=== PATIENT | male | born 1950 | race Caucasian/White ===

== ENCOUNTER 2017-04-30 07:36 | Emergency (ER) | payer MEDICARE, OTHER ==
[~2017-04-30] VITALS: Ht 177.8 cm; Wt 86.0 kg
[~2017-04-30 07:36] MED LIST: ASPI81 PO; LORTA5 PO; ORPH100T PO; PRAV10 PO; PRIL10CA; TEMA7.5C9 PO; ZOLO50TA PO
[2017-04-30 07:39] VITALS: BP 136/66; PULSE 80; RESP 18; TEMP 98.2; O2SAT 98
[2017-04-30] MEDS ORDERED: VENTAER INH (07:54)
[2017-04-30] MEDS ORDERED: ZITHTAB PO (07:54)
[2017-04-30] MEDS ORDERED: PRED-503 PO (07:54)
--- NOTE | 2017-04-30 07:54 | PD ---
HPI Chief Complaint: Cold / Flu Symptoms Time Seen by Provider: 07:43 Travel History International Travel<30 days: No Contact w/Intl Traveler<30days: No Traveled to known affect area: No History of Present Illness HPI The patient is a 67-year-old male who presents to the emergency department for cough and cold symptoms. The patient states she developed flulike symptoms on Wednesday with sore throat, nasal congestion, and body aches. The patient states he then developed a productive cough producing yellow to green sputum. The patient denies any history of tobacco use. He denies any fever, chills, or sweats. He denies any anterior facial pain, but does complain of congestion with postnasal drip. He now complains of productive cough without any chest pain or shortness of breath. He denies any associated nausea, vomiting, diarrhea, or abdominal pain. The patient is followed at the [facility]. Symptoms are moderate without any alleviating or exacerbating factors. PFSH Past Medical History Hx Anticoagulant Therapy: Yes (ASA 81MG DAILY) Depression: Yes Heart Rhythm Problems: No Cardiac Catheterization: No Cardiovascular Problems: No High Cholesterol: Yes Congestive Heart Failure: No Diabetes: No Diminished Hearing: No GERD: Yes Genitourinary: Yes (POLYURIA) Hypertension: No Immunizations Current: Yes Myocardial Infarction: No PNEUMOCCOCAL Vaccine (Year): 2 Past Surgical History Appendectomy: Yes Body Medical Devices: IMPLANT IN BACK- TO CONTROL BLADDER FREQUENCY Coronary Artery Bypass Graft: No Tonsillectomy: Yes Other Surgery: Yes (ANAL FISTULA) Social History Alcohol Use: Yes (OCC.) Tobacco Use: No Substance Use: No Allergies-Medications (Allergen,Severity, Reaction): Coded Allergies: No Known Allergies (Unverified , 04/30/17) Reported Meds & Prescriptions Reported Meds & Active Scripts Active Norflex (Orphenadrine Citrate) 100 Mg Mabel 100 Mg PO Q12 PRN Lortab 5/325 Tab (Hydrocodone-Acetaminophen) Acetaminophen 325/5 Hydrocodone Tab 1 Tab PO Q6H PRN Reported Zoloft (Sertraline HCl) Unknown Strength Tab Unknown Dose PO DAILY Restoril (Temazepam) Unknown Strength Cap Unknown Dose PO UNKNOWN DOSE Aspirin 81 Mg Tab 81 Mg PO DAILY Pravachol (Pravastatin Sodium) Unknown Strength Tab Unknown Dose PO UNKNOWN DOSE Prilosec (Omeprazole) Unknown Strength Cap Unknown Dose Review of Systems Except as stated in HPI: all other systems reviewed are Neg General / Constitutional: No: Fever, Chills HENT: Positive: Sore Throat, Congestion Cardiovascular: No: Chest Pain or Discomfort Respiratory: Positive: Cough, No: Shortness of Breath Gastrointestinal: No: Nausea, Vomiting, Diarrhea Musculoskeletal: No: Myalgias, Arthralgias Physical Exam Narrative GENERAL: Awake, alert, pleasant 67-year-old male who appears his stated age and is in no acute respiratory distress. SKIN: Focused skin assessment warm/dry. HEAD: Atraumatic. Normocephalic. EYES: Pupils equal and round. No scleral icterus. No injection or drainage. ENT: No nasal bleeding or discharge. Cobblestoning noted without exudate. No tenderness of the maxillary or frontal sinuses. NECK: Trachea midline. No JVD. No significant anterior cervical lymphadenopathy noted. CARDIOVASCULAR: Regular rate and rhythm. No murmur appreciated. RESPIRATORY: No accessory muscle use. Few scattered wheezes. GASTROINTESTINAL: Abdomen soft, non-tender, nondistended. MUSCULOSKELETAL: No obvious deformities. No clubbing. No cyanosis. No edema. NEUROLOGICAL: Awake and alert. No obvious cranial nerve deficits. Motor grossly within normal limits. Normal speech. PSYCHIATRIC: Appropriate mood and affect; insight and judgment normal. Data Data Last Documented VS Vital Signs Date Time Temp Pulse Resp B/P (MAP) Pulse Ox O2 Delivery O2 Flow Rate FiO2 04/30/17 07:39 98.2 80 18 136/66 (89) 98 MDM Medical Decision Making Medical Screen Exam Complete: Yes Emergency Medical Condition: Yes Medical Record Reviewed: Yes Differential Diagnosis Differential diagnosis includes bronchitis, pneumonia, URI, viral syndrome, sinusitis, pharyngitis, influenza. Narrative Course The patient's history and physical are consistent with probable previous URI with secondary bronchitis. The patient is currently afebrile there is no hypoxia, therefore, chest x-ray was not performed. The patient's symptoms started on Wednesday, is now Wednesday, therefore, no influenza screen was performed. The patient is currently afebrile with normal vital signs. Patient will be treated for bronchitis with prednisone, albuterol inhaler, and Zithromax. The patient had a listed allergy for Cipro, he states he is not allergic to any antibiotics. Therefore, that allergy was removed. He also had allergies listed as warfarin and aspirin, however, he states he is not allergic to any medications, he had a GI bleed and a thinks his medications possibly related. However, he adamantly states he has no allergies, therefore, his allergies were deleted. The patient is advised to follow-up at the [facility] and return if symptoms worsen or progress. Diagnosis Primary Impression: Bronchitis Patient Instructions: General Instructions Additional Instructions: Medications as directed. Follow-up with your primary physician at the [facility]. Return if symptoms worsen or progress. Med/Other Pt SpecificInfo: Prescription(s) given Scripts Albuterol 18 GM Inh (Ventolin Hfa 18 GM Inh) 90 Mcg/Act Aer 2 PUFF INH Q6H Y for SHORTNESS OF BREATH, #1 INHALER 0 Refills Prov: Jonnie Fierro MD 04/30/17 Prednisone (Deltasone) 20 Mg Tab 40 MG PO DAILY for 5 Days, #10 TAB 0 Refills Prov: Jonnie Fierro MD 04/30/17 Azithromycin (Zithromax Z-Preston) 250 Mg Dspk 250 MG PO DIRECTED for Infection, #1 DSPK 0 Refills 500 MG (2 tabs) day 1, then 1 tab days 2-5. Prov: Jonnie Fierro MD 04/30/17 Disposition: 01 DISCHARGE HOME Condition: Stable Jonnie Fierro MD Apr 30, 2017 07:54
[2017-04-30] MEDS ORDERED: VITA1000 PO (08:02)
[2017-04-30] MEDS ORDERED: MAGN200T9 PO (08:02)
[2017-04-30] MEDS ORDERED: SERT-132 PO (08:02)
[2017-04-30] MEDS ORDERED: PRAV20TA2 PO (08:02)
[2017-04-30] MEDS ORDERED: ASPI81TA23 PO (08:03)
== END 2017-04-30 08:10 | disposition home or self-care (01) ==
LOC: PHED 07:36
DX: J40 Bronchitis, not specified as acute or chronic (principal); J02.9 Acute pharyngitis, unspecified; F32.9 Major depressive disorder, single episode, unspecified; K21.9 Gastro-esophageal reflux disease without esophagitis; E78.00 Pure hypercholesterolemia, unspecified
CPT/HCPCS: 99284

== ENCOUNTER 2017-06-10 17:31 | Emergency (ER) | payer MEDICARE, OTHER ==
[~2017-06-10] VITALS: Ht 177.8 cm; Wt 87.8 kg
[~2017-06-10 17:31] MED LIST changes: -ASPI81 PO; +ASPI81TA23 PO; -LORTA5 PO; +MAGN200T9 PO; -ORPH100T PO; -PRAV10 PO; +PRAV20TA2 PO; +PRED-503 PO; -PRIL10CA; +SERT-132 PO; -TEMA7.5C9 PO; +VENTAER INH; +VITA1000 PO; +ZITHTAB PO; -ZOLO50TA PO
[2017-06-10 17:35] VITALS: BP 122/75; PULSE 81; RESP 20; TEMP 97.7; O2SAT 96
[2017-06-10] MEDS ORDERED: BUPR100T4 PO (17:53)
[2017-06-10] MEDS ORDERED: OMEP20TA93 PO (17:53)
--- NOTE | 2017-06-10 18:40 | PD ---
HPI Chief Complaint: Fall Time Seen by Provider: 18:19 Travel History International Travel<30 days: No Contact w/Intl Traveler<30days: No Traveled to known affect area: No History of Present Illness HPI 67-year-old male here with right anterior rib & toe pain after he tripped and fell onto the corner of a wood table injuring his ribs. Injury occurred at 3 PM today. He denies head injury or loss of consciousness. He is not anticoagulated. He has pain with palpation of the ribs and deep inspiration. He denies headache, neck pain, chest pain, shortness of breath, abdominal pain, nausea or vomiting. He also has pain in the right great toe. Symptom severity is moderate. Aggravated by movement and palpation of the areas and relieved with rest. PFSH Past Medical History Arthritis: Yes Anxiety: Yes Depression: Yes Heart Rhythm Problems: No Cardiac Catheterization: No Cardiovascular Problems: No High Cholesterol: Yes Congestive Heart Failure: No Cerebrovascular Accident: Yes (tia?) Diabetes: No Diminished Hearing: No GERD: Yes Genitourinary: Yes (POLYURIA) Hypertension: No Respiratory: Yes (bronchitis, TOMÁS) Immunizations Current: Yes Myocardial Infarction: No Tetanus Vaccination: < 5 Years Influenza Vaccination: Yes PNEUMOCCOCAL Vaccine (Year): 2 Past Surgical History Appendectomy: Yes Body Medical Devices: IMPLANT IN BACK- TO CONTROL BLADDER FREQUENCY Coronary Artery Bypass Graft: No Genitourinary Surgery: Yes (genital reconstruction as a baby) Tonsillectomy: Yes Other Surgery: Yes (ANAL FISTULA) Family History Family Myocardial Infarction: Yes Social History Alcohol Use: Yes (socially) Tobacco Use: No (quit in 1976 ) Substance Use: No Allergies-Medications (Allergen,Severity, Reaction): Coded Allergies: No Known Allergies (Unverified , 06/10/17) Reported Meds & Prescriptions Reported Meds & Active Scripts Active Ultram (Tramadol HCl) 50 Mg Tab 50 Mg PO Q6H PRN Reported Omeprazole 20 Mg Tab 20 Mg PO DAILY Bupropion HCl 100 Mg Tab 100 Mg PO HS Aspirin EC (Aspirin) 81 Mg Tabdr 81 Mg PO DAILY Mag-Oxide (Magnesium Oxide) Unknown Strength Tablet Unknown Dose PO DAILY Vitamin D-1000 (Cholecalciferol) Unknown Strength Tab Unknown Dose PO DAILY Pravastatin 20 Mg Tab 20 Mg PO HS Sertraline (Sertraline HCl) 50 Mg Tab 50 Mg PO DAILY Review of Systems Except as stated in HPI: all other systems reviewed are Neg General / Constitutional: No: Fever Eyes: No: Visual changes HENT: No: Headaches Cardiovascular: Positive: Other (right rib pain), No: Chest Pain or Discomfort Respiratory: No: Shortness of Breath Gastrointestinal: No: Abdominal Pain Genitourinary: No: Dysuria Musculoskeletal: No: Pain Skin: No Rash Neurologic: No: Weakness Physical Exam Narrative GENERAL: Alert, well-appearing male in no distress. Patient resting comfortably on stretcher. SKIN: Warm and dry. Abrasion noted to the right lower anterior chest wall at the border of the ribs. HEAD: Atraumatic. Normocephalic. EYES: Pupils equal and round. No scleral icterus. No injection or drainage. ENT: No nasal bleeding or discharge. Mucous membranes pink and moist. NECK: Trachea midline. No JVD. No cervical midline tenderness. CARDIOVASCULAR: Regular rate and rhythm. RESPIRATORY: No accessory muscle use. Clear to auscultation. Breath sounds equal bilaterally. Tenderness to the right anterior ribs. No rib crepitus. GASTROINTESTINAL: Abdomen soft, non-tender, nondistended no rebound. Hepatic and splenic margins not palpable. MUSCULOSKELETAL: Extremities without clubbing, cyanosis, or edema. No obvious deformities. Right great toe: ecchymotic and mild swelling. No deformity. Refill. NEUROLOGICAL: Awake and alert. No obvious cranial nerve deficits. Motor grossly within normal limits. Five out of 5 muscle strength in the arms and legs. Normal speech. PSYCHIATRIC: Appropriate mood and affect; insight and judgment normal. Data Data Last Documented VS Vital Signs Date Time Temp Pulse Resp B/P (MAP) Pulse Ox O2 Delivery O2 Flow Rate FiO2 06/10/17 17:35 97.7 81 20 122/75 (91) 96 Orders Orders Ribs, Uni (W/Exp Cxr-Min 3vw) (06/10/17 ) Toe (Min 2vws) (06/10/17 ) Ketorolac Inj (Toradol Inj) (06/10/17 19:15) Ed Discharge Order (06/10/17 19:37) [facility] Medical Decision Making Medical Screen Exam Complete: Yes Emergency Medical Condition: Yes Differential Diagnosis Rib fracture, intra-abdominal injury, toe injury, contusion, sprain Narrative Course 67-year-old male here for evaluation of right rib and right great toe pain after a mechanical trip and fall. Patient stubbed the toe falling forward landing on the edge of a wood table injuring his ribs. He has an abrasion to the right lower anterior chest wall extending to the rib border/RUQ. The patient's abdomen is soft, nontender, nondistended. He is adamant he has no abdominal pain. His pain is localized to the ribs. Given the patient's physical exam intra-abdominal injury such as a liver laceration is very unlikely. This was discussed with patient. A CT scan was offered because of the abrasion noted to the right upper quadrant but the patient declined stating he had no abdominal pain. Risk/severity of a missed intra- abdominal injury was discussed. Patient verbalizes understanding and agrees to return if he develops abdominal pain, distention, nausea or vomiting. Chest x-ray: Negative for rib fracture. No pneumothorax. Right foot: Right distal phalanx fracture. Patient was reassessed after Toradol. He reports symptom improvement. His abdomen again was reassessed it is soft and nontender. No distention. He is stable and ready for discharge Diagnosis Primary Impression: Rib contusion Qualified Codes: S20.211A - Contusion of right front wall of thorax, initial encounter Additional Impression: Toe fracture, right Qualified Codes: S92.424A - Nondisplaced fracture of distal phalanx of right great toe, initial encounter for closed fracture Referrals: Primary Care Physician Additional Instructions: Take [id number] Motrin 800 mg as needed for pain. Take Ultram as needed for severe pain Avoid heavy lifting or strenuous activity. 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 Scripts Tramadol (Ultram) 50 Mg Tab 50 MG PO Q6H Y for PAIN, #12 TAB 0 Refills Prov: Eleazar Christianson MD 06/10/17 Disposition: 01 DISCHARGE HOME Condition: Stable Kymebrly French Jun 10, 2017 18:40
--- NOTE | 2017-06-10 18:55 | RADRPT ---
EXAM DATE/TIME: 06/10/2017 18:21 [facility] COMPARISON: No previous studies available for comparison. INDICATIONS : Fall. Stubbed toe and fell and hit ribs this afternoon. MEDICAL HISTORY : None. SURGICAL HISTORY : None. ENCOUNTER: Initial ACUITY: 1 day PAIN SCORE: 4/10 LOCATION: Right Great toe FINDINGS: There is a mildly displaced chip fracture involving the dorsal corner of the great toe distal phalanx at the interphalangeal joint. There is mild degenerative arthritic change present. Mild hallux valgu s noted. CONCLUSION: Great toe distal phalangeal fracture involving the dorsal interphalangeal joint Rajeev Gonsales MD on June 10, 2017 at 18:52 Board Certified Radiologist. This report was verified electronically.
--- NOTE | 2017-06-10 19:10 | RADRPT ---
EXAM DATE/TIME: 06/10/2017 18:21 [facility] COMPARISON: No previous studies available for comparison. INDICATIONS : Fall. Stubbed toe and fell and hit ribs this afternoon. MEDICAL HISTORY : None. SURGICAL HISTORY : None. ENCOUNTER: Initial ACUITY: 1 day PAIN SCORE: 7/10 LOCATION: Right Ribs FINDINGS: Multiple views of the right ribs were performed. There is no evidence of displaced fracture. No luiz tructive lesions or areas of periosteal thickening are seen. Expiratory view of the chest is negativ e for pneumothorax. The mediastinal structures are midline. CONCLUSION: Unremarkable examination of the right ribs and chest. Rajeev Gonsales MD on June 10, 2017 at 19:07 Board Certified Radiologist. This report was verified electronically.
[2017-06-10] MEDS ORDERED: KETOROLAC TROMETHAMINE 60 MG/2 ML (IM) VIAL IM ONE (19:15)
[2017-06-10] MEDS ORDERED: IBUP1TAB7 PO (19:36)
[2017-06-10] MEDS ORDERED: TRAM50 PO (19:45)
== END 2017-06-10 19:59 | disposition home or self-care (01) ==
LOC: PHEFT 17:31
DX: S20.219A Contusion of unspecified front wall of thorax, initial encounter (principal); S92.421A Displaced fracture of distal phalanx of right great toe, initial encounter for closed fracture; W01.190A Fall on same level from slipping, tripping and stumbling with subsequent striking against furniture, initial encounter; E78.00 Pure hypercholesterolemia, unspecified; F32.9 Major depressive disorder, single episode, unspecified; F41.9 Anxiety disorder, unspecified; K21.9 Gastro-esophageal reflux disease without esophagitis; Z86.73 Personal history of transient ischemic attack (TIA), and cerebral infarction without residual deficits; Z87.891 Personal history of nicotine dependence
CPT/HCPCS: 71101; 73660; 96372; 99284; J1885